=== PATIENT | male | born 1960 | race Caucasian/White ===

== ENCOUNTER 2017-01-14 10:34 | Inpatient (IN) | payer OTHER ==
[~2017-01-14] VITALS: Ht 167.6 cm; Wt 92.6 kg
[2017-01-14] MEDS ORDERED: IV NORMAL SALINE 1000 ML BAG IV ONE ×2 (10:45→12:15)
[2017-01-14] MEDS ORDERED: ONDANSETRON 4 MG/2 ML VIAL IV ONE (10:45)
[2017-01-14 11:05] LABS: BASOPHILS % (AUTO) 0.2 % (0.0-2.0); EOSINOPHILS # (AUTO) 0.1 K/uL (0.0-0.7); EOSINOPHILS % (AUTO) 0.7 % (0.0-7.0); HEMATOCRIT 38.6 % (40-50); HEMOGLOBIN 12.1 G/DL (14.0-18.0); LYMPHOCYTES # (AUTO) 2.3 K/UL (0.8-4.8); LYMPHOCYTES % (AUTO) 27.7 % (20.5-51.5); MEAN CORPUSCULAR HEMOGLOBIN 22.4 UUG (27.0-31.0); MEAN CORPUSCULAR HGB CONC 31 g/dL (32.0-37.0); MEAN CORPUSCULAR VOLUME 71.2 FL (82.0-92.0); MONOCYTES # (AUTO) 0.5 K/UL (0.1-1.30); MONOCYTES % (AUTO) 5.8 % (0.0-11.0); NEUTROPHILS # (AUTO) 5.5 K/UL (1.8-8.9); NEUTROPHILS % (AUTO) 65.6 % (38.5-71.5); PLATELET COUNT (AUTO) 231 K/UL (150-450); RED BLOOD CELL COUNT(AUTO) 5.42 MIL/UL (4.7-6.1); WHITE BLOOD COUNT (AUTO) 8.4 K/UL (4.0-11.2)
[2017-01-14] MEDS ORDERED: ONDANSETRON 4 MG/2 ML VIAL ONE (11:05)
[2017-01-14] MEDS ORDERED: WARF5TAB6 PO (11:05)
[2017-01-14 11:10] LABS: CREATININE 1.3 mg/dL (0.6-1.3)
[2017-01-14 11:24] LABS: *BILIRUBIN,URIN NEGATIVE (NEGATIVE); *BLOOD, URINE NEGATIVE (NEGATIVE); *CLARITY,URINE CLEAR (CLEAR); *COLOR,URINE LIGHT YELLOW (YELLOW); *KETONES,URINE 1+ (NEGATIVE); *PROTEIN,URINE 1+ (NEGATIVE); *UROBILINOGEN,URINE 0.2 E.U./dl (NORMAL); LEUKOCYTE ESTERASE ,URINE NEGATIVE (NEGATIVE); NITRITE, URINE NEGATIVE (NEGATIVE)
[2017-01-14 11:29] LABS: UGLUCOSE 2+ (NEGATIVE)
[2017-01-14 11:34] LABS: BACTERIA,URINE FEW /HPF (NONE SEEN); RBC,URINE NONE SEEN /HPF (0-3); SQUAMOUS EPITHELIAL CELL,UR FEW /HPF (NONE SEEN)
[2017-01-14 11:38] LABS: LYMPHOCYTES % (MANUAL) 21 % (20-40); MONOCYTES % (MANUAL) 4 % (2-10); NEUTROPHILS % (MANUAL) 75 % (42-75)
[2017-01-14 12:01] LABS: ABG HCO3 18.7 mmol/L; ABG PCO2 38.7 mmHg (35.0-45.0); ABG PH 7.303 (7.350-7.450); ABG PO2 51.7 mmHg (75.0-100.0); ABG SITE RIGHT RADIAL; ABG TOTAL HEMOGLOBIN 11.7 G/dL (13.5-18.0); COHb 1.5 % (0.5-1.5); MetHb 0.1 % (0.0-1.5); O2Hb 82.4 % (94.0-97.0)
[2017-01-14] MEDS ORDERED: METOCLOPRAMIDE HCL 10 MG/2 ML VIAL IV ONE (12:15)
[2017-01-14] MEDS ORDERED: METOCLOPRAMIDE HCL 10 MG/2 ML VIAL ONE (12:20)
--- NOTE | 2017-01-14 12:23 | NUR ---
1207- Patient c/o severe dizziness again with nausea, AOX4, GAY, respiration:easy, denies chest pains, no sob seen, pale dry skin- MD notified
[2017-01-14] MEDS ORDERED: INSULIN REGULAR, HUMAN 1,000 UNITS/10 ML VIAL SUBCUT ONE (12:45)
[2017-01-14] MEDS ORDERED: INSULIN REGULAR, HUMAN 300 UNIT/3 ML VIAL ONE (12:49)
--- NOTE | 2017-01-14 12:52 | NUR ---
OUT for lunch, endorsed to PAZ Matos accordingly, pending admitting papers from ER registration staff Nahid at this time.
--- NOTE | 2017-01-14 13:12 | NUR ---
Pt. admitted to TELE, under care of Dr. Vogel Belongs List completed
[2017-01-14 13:25] VITALS: BP 92/45
--- NOTE | 2017-01-14 13:25 | NUR ---
Received this admission from ER per kwan this 56 male, with the chief complaint of dizziness, with the diagnosis of Hyperglycemia. Transferred to bed comfortably. Routine admission care rendered. Awake, alert, oriented x 4, able to move all extremities on purpose. Saline lock RFA g18. Placed on tele SR. Dr. Vogel informed of admission.
[2017-01-14 15:48] VITALS: BP 90/56
[2017-01-14] MEDS ORDERED: Z GUARD REMEDY PASTE 57 GM TUBE TOP PRN (16:00)
[2017-01-14] MEDS ORDERED: MORPHINE SULFATE 2 MG/1 ML DISP.SYRIN IV PRN (16:00)
[2017-01-14] MEDS ORDERED: ZOLPIDEM 5 MG TABLET PO PRN (16:00)
[2017-01-14] MEDS ORDERED: ACETAMINOPHEN 325 MG TABLET PO PRN (16:00)
[2017-01-14] MEDS ORDERED: DEXTROSE 50% 50 ML DISP.SYRIN IV PRN (16:00)
[2017-01-14] MEDS ORDERED: ONDANSETRON 4 MG/2 ML VIAL IV PRN (16:00)
[2017-01-14] MEDS ORDERED: WARFARIN SODIUM 5 MG TABLET PO SCH (17:00)
[2017-01-14] MEDS: IV NS 1000 ML 1,000 ML IV PRN (17:33)
[2017-01-14] MEDS: INSULIN REGULAR, HUMAN 300 UNIT/3 ML VIAL SQ PRN ×2 (17:40→19:57)
--- NOTE | 2017-01-14 18:00 | NUR ---
BG 267, Insulin sliding scale given. IVF of NS started as ordered. Warfarin dose corrected.
[2017-01-14] MEDS ORDERED: WARFARIN SODIUM 10 MG TABLET PO SCH (18:30)
[2017-01-14] MEDS: BLOOD SUGAR DIAGNOSTIC 1 EACH STRIP VI SCH ×2 (18:44→19:50)
--- NOTE | 2017-01-14 19:30 | NUR ---
RECEIVED PATIENT RESTING IN BED, IN NO ACUTE DISTRESS, NO SOB, SPOUSE AT BEDSIDE. IVF RUNNING, NO INFILTRATION NOTED. BED ALARM ON, CALL LIGHT WITHIN REACH. WILL CONTINUE PLAN OF CARE AND MONITOR.
[2017-01-14 20:20] VITALS: BP 101/68
[2017-01-14] MEDS ORDERED: INSULIN DETEMIR 300 UNIT/3 ML CARTRIDGE SQ SCH (21:00)
--- NOTE | 2017-01-14 22:15 | NUR ---
PATIENT C/O OF DIZZINESS, NAUSEA AND FOUND VOMITING. PATIENT IS VERBALLY RESPONSIVE, IN NO ACUTE DISTRESS, NO C/O OF SOB OR CHEST PAIN. ACCUCHECK LEVEL READ AT 208. ADMINISTERED ZOFRAN, ATTENDED TO PATIENT'S NEEDS. WILL CONTINUE TO OBSERVE. BED ALARM ON, CALL LIGHT WITHIN REACH.
[2017-01-15] VITALS: BP 91/58
[2017-01-15] MEDS: BLOOD SUGAR DIAGNOSTIC 1 EACH STRIP VI SCH ×6 (00:50→20:19)
[2017-01-15] MEDS: INSULIN REGULAR, HUMAN 300 UNIT/3 ML VIAL SQ PRN ×6 (00:57→20:23)
[2017-01-15] MEDS: IV NS 1000 ML 1,000 ML IV PRN ×3 (02:56→22:08)
[2017-01-15 04:00] VITALS: BP 92/67
--- NOTE | 2017-01-15 06:32 | NUR ---
PATIENT SLEPT INTERMITTENTLY, IN NO ACUTE DISTRESS, NO SOB. NO FURTHER EPISODES OR C/O OF DIZZINESS/NAUSEA/VOMITING. PATIENT ON TELE SR 70'S. ACCUCHECKS Q4HR ORDERED. IVF RUNNING, NO INFILTRATION NOTED. PATIENT TEACHINGS DONE, EDUCATIONAL PRINT OUT PROVIDED, PATIENT SIGNED FORM AND VERBALIZED UNDERSTANDING. CALL LIGHT WITHIN REACH, BED ALARM ON. WILL CONTINUE TO MONITOR.
[2017-01-15 06:48] LABS: BASOPHILS % (AUTO) 0.3 % (0.0-2.0); EOSINOPHILS # (AUTO) 0.1 K/uL (0.0-0.7); EOSINOPHILS % (AUTO) 0.9 % (0.0-7.0); HEMATOCRIT 32.9 % (40-50); HEMOGLOBIN 10.8 G/DL (14.0-18.0); LYMPHOCYTES # (AUTO) 1.5 K/UL (0.8-4.8); LYMPHOCYTES % (AUTO) 16.8 % (20.5-51.5); MEAN CORPUSCULAR HEMOGLOBIN 23.2 UUG (27.0-31.0); MEAN CORPUSCULAR HGB CONC 33 g/dL (32.0-37.0); MONOCYTES # (AUTO) 0.5 K/UL (0.1-1.30); MONOCYTES % (AUTO) 5.3 % (0.0-11.0); NEUTROPHILS # (AUTO) 6.7 K/UL (1.8-8.9); NEUTROPHILS % (AUTO) 76.7 % (38.5-71.5); PLATELET COUNT (AUTO) 194 K/UL (150-450); RED BLOOD CELL COUNT(AUTO) 4.64 MIL/UL (4.7-6.1); WHITE BLOOD COUNT (AUTO) 8.8 K/UL (4.0-11.2)
[2017-01-15 07:12] LABS: THYROID STIMULATING HORMONE 0.307 mIU/mL (0.358-3.740)
[2017-01-15 07:23] LABS: BILIRUBIN,TOTAL 0.2 mg/dL (0.2-1.0); CREATININE 0.8 mg/dL (0.6-1.3); MAGNESIUM 1.8 mg/dL (1.8-2.4); PHOSPHOROUS 3.3 mg/dL (2.5-4.9); POTASSIUM 4.1 mmol/L (3.5-5.1); TOTAL PROTEIN, SERUM 6.8 g/dL (6.4-8.2)
[2017-01-15 11:55] VITALS: BP 111/81
--- NOTE | 2017-01-15 12:30 | NUR ---
PT WAS EDUCATED ON HOW TO PROPERLY CHECK BS, AND HOW TO PROPERLY DRAW UP AND ADMINISTER INSULIN. PT VERBALIZED UNDERSTANDING AND USED TEACH BACK METHOD TO CLARIFY. PT STATED USED TO HAVE TO DO THIS ROUTINE 4 YEARS AGO PRIOR TO LOSING 50 LBS.
[2017-01-15 15:40] VITALS: BP 91/62
[2017-01-15] MEDS ORDERED: WARFARIN SODIUM 5 MG TABLET PO SCH (17:00)
[2017-01-15] MEDS ORDERED: WARFARIN SODIUM 10 MG TABLET PO SCH (17:00)
[2017-01-15 18:21] LABS: *BILIRUBIN,URIN NEGATIVE (NEGATIVE); *BLOOD, URINE NEGATIVE (NEGATIVE); *CLARITY,URINE CLEAR (CLEAR); *COLOR,URINE YELLOW (YELLOW); *KETONES,URINE NEGATIVE (NEGATIVE); *PROTEIN,URINE NEGATIVE (NEGATIVE); *UROBILINOGEN,URINE 0.2 E.U./dl (NORMAL); LEUKOCYTE ESTERASE ,URINE NEGATIVE (NEGATIVE); NITRITE, URINE NEGATIVE (NEGATIVE); PH,URINE 5.5 (5.0-8.0)
--- NOTE | 2017-01-15 18:44 | NUR ---
PT SLEEPING IN BED, AWAKENS TO NAME. IN NO ACUTE DISTRESS, BS CHECKS ROUTINELY AND EDUCATED ON PROPER DIET, EXERCISE AND INSULIN ADMINISTRATION. ALL SAFETY AND COMFORT MEASURES MAINTAINED THROUGHOUT SHIFT, CALL LIGHT IN REACH.
[2017-01-15 18:49] LABS: UGLUCOSE 2+ (NEGATIVE)
[2017-01-15 18:51] LABS: MUCUS,URINE FEW /LPF (0-FEW); SQUAMOUS EPITHELIAL CELL,UR FEW /HPF (NONE SEEN); WBC,URINE 0-3 /HPF (0-3)
[2017-01-15 20:00] VITALS: BP 118/74
[2017-01-15] MEDS ORDERED: ATORVASTATIN 10 MG TABLET PO SCH (21:00)
[2017-01-15] MEDS ORDERED: INSULIN DETEMIR 300 UNIT/3 ML CARTRIDGE SQ SCH ×2 (21:00)
[2017-01-16] MEDS: BLOOD SUGAR DIAGNOSTIC 1 EACH STRIP VI SCH ×4 (00:35→11:47)
[2017-01-16 05:00] VITALS: BP 107/59
--- NOTE | 2017-01-16 05:31 | NUR ---
SLEEPING AT THIS TIME. IN NO ACUTE SIGNS OF DISTRESS. IVF INFUSING. ON BRP. DENIES PAIN . BS SUGAR MONITORED. NO S/S OF HYPO/ HYPERGLYCEMIA. CALL LIGHT WITHIN REACH.
[2017-01-16 06:44] LABS: BASOPHILS % (AUTO) 0.4 % (0.0-2.0); EOSINOPHILS # (AUTO) 0.1 K/uL (0.0-0.7); EOSINOPHILS % (AUTO) 1.4 % (0.0-7.0); HEMATOCRIT 31.3 % (40-50); HEMOGLOBIN 10.1 G/DL (14.0-18.0); LYMPHOCYTES # (AUTO) 1.8 K/UL (0.8-4.8); LYMPHOCYTES % (AUTO) 23.8 % (20.5-51.5); MEAN CORPUSCULAR HEMOGLOBIN 22.8 UUG (27.0-31.0); MEAN CORPUSCULAR HGB CONC 32 g/dL (32.0-37.0); MEAN CORPUSCULAR VOLUME 70.6 FL (82.0-92.0); MONOCYTES # (AUTO) 0.5 K/UL (0.1-1.30); MONOCYTES % (AUTO) 6.7 % (0.0-11.0); NEUTROPHILS # (AUTO) 5.2 K/UL (1.8-8.9); NEUTROPHILS % (AUTO) 67.7 % (38.5-71.5); PLATELET COUNT (AUTO) 184 K/UL (150-450); RED BLOOD CELL COUNT(AUTO) 4.42 MIL/UL (4.7-6.1); WHITE BLOOD COUNT (AUTO) 7.6 K/UL (4.0-11.2)
[2017-01-16 07:01] LABS: BILIRUBIN,TOTAL 0.3 mg/dL (0.2-1.0); CREATININE 0.8 mg/dL (0.6-1.3); PHOSPHOROUS 3.5 mg/dL (2.5-4.9); POTASSIUM 3.5 mmol/L (3.5-5.1); TOTAL PROTEIN, SERUM 6.1 g/dL (6.4-8.2)
[2017-01-16 07:24] LABS: THYROID STIMULATING HORMONE 0.419 mIU/mL (0.358-3.740)
[2017-01-16] MEDS ORDERED: WARF10TA2 PO (08:03)
[2017-01-16] MEDS: INSULIN REGULAR, HUMAN 300 UNIT/3 ML VIAL SQ PRN ×2 (08:16→11:50)
[2017-01-16] MEDS: IV NS 1000 ML 1,000 ML IV PRN (08:17)
[2017-01-16 08:50] LABS: MAGNESIUM 1.6 mg/dL (1.8-2.4)
[2017-01-16 09:41] LABS: BAND % (MANUAL) 2 % (0-10); EOSINOPHILS % (MANUAL) 1 % (0-8); LYMPHOCYTES % (MANUAL) 26 % (20-40); MONOCYTES % (MANUAL) 10 % (2-10); NEUTROPHILS % (MANUAL) 61 % (42-75)
--- NOTE | 2017-01-16 10:19 | NUR ---
STOOL SPECIMEN SENT TO LAB
[2017-01-16] MEDS ORDERED: MAGNESIUM SULFATE/D5W 100 ML IV SCH (10:30)
[2017-01-16 11:17] LABS: IRON, SERUM 17 ug/dL (50-175)
[2017-01-16 12:03] VITALS: BP 123/89
[2017-01-16 12:33] LABS: *OCCULT BLOOD STOOL NEGATIVE (NEGATIVE)
[2017-01-16] MEDS ORDERED: ACET325T53 PO (13:34)
[2017-01-16] MEDS ORDERED: INSU100I19 SQ (13:34)
[2017-01-16] MEDS ORDERED: Blood Sugar Diagnostic VI (13:34)
[2017-01-16] MEDS ORDERED: INSU100V28 SQ (13:34)
[2017-01-16] MEDS ORDERED: ATOR10TA PO (13:34)
[2017-01-16] MEDS ORDERED: FERR325T28 PO (13:35)
--- NOTE | 2017-01-16 15:55 | NUR ---
DISCHARGE PROTOCOL FOLLOWED, PT WAS EDUCATED ON PRESCRIPTION MEDICATIONS WITH PHARMACISTS. VERBALIZED UNDERSTANDING. DISCHARGE EDUCATION PROVIDED, PT VERBALIZED UNDERSTANDING. ALL BELONGINGS ACCOUNTED FOR AND RETURNED TO PT, IV REMOVED WITH NO REDNESS OR IRRITATION NOTED. ID BAND REMOVED, PT WAITING FOR TO ARRIVE
--- NOTE | 2017-01-16 16:43 | NUR ---
PT TAKEN DOWN IN WHEELCHAIR AND LEFT IN PRIVATE CAR WITH
[2017-01-16] MEDS ORDERED: WARFARIN SODIUM 10 MG TABLET PO SCH (17:00)
[2017-01-17] MEDS ORDERED: FERROUS SULFATE 325 MG TABEC PO SCH (09:00)
== END 2017-01-16 16:40 | disposition home or self-care (01) | DRG 638 ==
LOC: ER 10:34 → TELE 12:43 → MED 01-15 13:13
PROVIDERS: ADMIT Nurse Practitioner Acute Care; ATTEND Nurse Practitioner Acute Care
DX: E13.10 Other specified diabetes mellitus with ketoacidosis without coma (principal); D68.9 Coagulation defect, unspecified; J90 Pleural effusion, not elsewhere classified; I10 Essential (primary) hypertension; E86.0 Dehydration; Z86.718 Personal history of other venous thrombosis and embolism; Z79.01 Long term (current) use of anticoagulants; Z79.4 Long term (current) use of insulin; Z98.890 Other specified postprocedural states; D50.9 Iron deficiency anemia, unspecified; E78.5 Hyperlipidemia, unspecified; E83.42 Hypomagnesemia; I69.392 Facial weakness following cerebral infarction
CPT/HCPCS: 36415; 36600; 70030-TC; 70450; 71010; 83550; 83735; 84100; 84443; 84481; 85025; 85610; 85730; 87086; 93005; A4663; J1815; J2270; J2405; J2765; J3475; J7030